=== PATIENT | male | born 1995 | race African-American/Black ===

== ENCOUNTER 2017-06-14 22:19 | Emergency (ER) | payer SELFPAY ==
[~2017-06-14] VITALS: Ht 182.9 cm; Wt 90.0 kg
[2017-06-14 22:32] VITALS: BP 155/83
== END 2017-06-15 01:02 | disposition left against medical advice (07) ==
LOC: ER 22:30
DX: J11.1 Influenza due to unidentified influenza virus with other respiratory manifestations (principal); Z53.21 Procedure and treatment not carried out due to patient leaving prior to being seen by health care provider